=== PATIENT | female | born 1965 | race Caucasian/White ===

== ENCOUNTER 2018-07-30 09:16 | Emergency (ER) | payer BC ==
[2018-07-30] MEDS ORDERED: ONDANSETRON 4 MG/2 ML VIAL IVPUSH ONE (09:42)
[2018-07-30] MEDS ORDERED: SODIUM CHLORIDE 1,000 ML IV STA (09:42)
[2018-07-30] MEDS ORDERED: ACETAMINOPHEN 1000 MG/100 ML VIAL (NON FORMULARY) IVPB ONE (09:42)
[2018-07-30] MEDS ORDERED: FAMOTIDINE 20 MG/50 ML IVPB 20 MG/50 ML MG IVPB ONE ×2 (09:42→14:33)
--- NOTE | 2018-07-30 09:42 | PDOC ---
History of Present Illness - General Chief Complaint: Nausea/Vomiting Stated Complaint: NAUSEA/VOMITING Time Seen by Provider: 07/30/18 09:23 - History of Present Illness Initial Comments: 07/30/18 11:57 The patient is a 53 year old female with a history of asthma who presents for evaluation of nausea, vomiting, abdominal pain. The patient reports a 4 day history of epigastric abdominal pain with associated nausea and multiple episodes of non-bloody, non-bilious vomiting. The patient reports being unable to tolerate PO intake prompting her presentation to the ED for further evaluation. The patient denies similar symptoms in the past. The patient denies any exacerbating or relieving factors. She otherwise denies fevers, chills, SOB, chest pain, or changes with urination or bowel movements. Past History - Past Medical History Allergies/Adverse Reactions: Allergies Allergy/AdvReac Type Severity Reaction Status Date / Time No Known Allergies Allergy Verified 07/30/18 09:20 Home Medications: Ambulatory Orders Albuterol Sulfate Inhaler - [Ventolin HFA Inhaler -] 1 - 2 inh PO Q4H 05/30/16 Budesonide/Formeterol Fumarate [SYMBICORT 160/4.5mcg -] 1 inh PO DAILY 05/30/16 Tramadol HCl [Ultram] 50 mg PO QID #20 tablet MDD 4 05/30/16 Ondansetron [Zofran -] 4 mg PO TID #21 tablet 07/30/18 Asthma: Yes COPD: No - Suicide/Smoking/Psychosocial Hx Smoking History: Never smoked Have you smoked in the past 12 months: No Hx Alcohol Use: No Drug/Substance Use Hx: No Substance Use Type: None Review of Systems - Review of Systems Comments:: 07/30/18 12:07 Constitutional: No fevers, chills, fatigue, malaise HEENT: No Rhinorrhea, nasal congestion, visual changes Cardiovascular: No chest pain, syncope, palpitations, lightheadedness Respiratory: No Cough, SOB, Hemoptysis, Gastrointestinal: Abdominal pain, nausea, vomiting. No Constipation, Diarrhea, Melena Genitourinary: No Dysuria, Frequency, Urgency, Hesitancy, Hematuria, Flank pain Musculoskeletal: No Myalgia, arthralgia Skin: No rashes, itching, bruising, pallor Neurologic: No Headache, Dizziness, Numbness, Weakness, or Tingling Psychiatric: No Hallucinations. No SI or HI *Physical Exam - Vital Signs Last Vital Signs Temp Pulse Resp BP Pulse Ox 98.1 F 90 16 135/87 97 07/30/18 09:21 07/30/18 09:21 07/30/18 09:21 07/30/18 09:21 07/30/18 09:21 - Physical Exam Comments: 07/30/18 12:07 General Appearance: Nourished. No Apparent Distress HEENT: No Pharyngeal Erythema, Tonsillar Exudate, Tonsillar Erythema Neck: No Cervical Lymphadenopathy Respiratory/Chest: Lungs Clear, Normal Breath Sounds. No Crackles, Rales, Rhonchi, Wheezing Cardiovascular: Regular Rhythm, Regular Rate. No Murmur, Gallops, Rubs Gastrointestinal/Abdominal: Normal Bowel Sounds, Soft. Epigastric tenderness to palpation with mild guarding. No Rebound, Musculoskeletal: No CVA Tenderness Extremity: Normal Capillary Refill Integumentary: Normal Color, Dry, Warm Neurologic: Fully Oriented, Alert, Normal Mood/Affect, Normal Response, ED Treatment Course - LABORATORY CBC & Chemistry Diagram: 07/30/18 09:50 07/30/18 09:50 Medical Decision Making - Medical Decision Making 07/30/18 12:10 The patient is a 53 year old female with a history of asthma who presents for evaluation of nausea, vomiting, abdominal pain. Differential includes but is not limited to: Gastritis, Pancreatitis, Cholecysitits, ACS, Infectious, Metabolic Derangement. Given the patient's history and physical exam, we will obtain a cbc, cmp, troponin, lipase, ua, gallbladder us, ekg to evaluate further. We will treat with iv fluids, zofran, tylenol, pepcid and continue to monitor and reassess while here in the ED. 07/30/18 14:44 CBC, cmp, troponin, lipase, ua are unremarkable. Troponin is unremarkable. Gallbladder US is unremarkable as read by our radiologist. The patient tolerated PO intake. We are comfortable discharging the patient home with primary care provider follow up. We discussed the results, plan, and return precautions with the patient who voiced understanding and is agreeable with the plan. *DC/Admit/Observation/Transfer Diagnosis at time of Disposition: Abdominal pain Qualifiers: Abdominal location: unspecified location Qualified Code(s): R10.9 - Unspecified abdominal pain - Discharge Dispostion Disposition: HOME Condition at time of disposition: Stable - Prescriptions Prescriptions: Ondansetron [Zofran -] 4 mg PO TID #21 tablet - Referrals Referrals: Juan Antonio Awad [Primary Care Provider] - - Patient Instructions Printed Discharge Instructions: DI for Nausea -- Adult, DI for Vomiting -- Adult Additional Instructions: Please return to the ER if you experience concerning or worsening symptoms including worsening difficulty breathing, weakness, or chest pain, abdominal pain, fever, vomiting. Your lab results and ultrasound were normal here in the ER. Please continue to drink plenty of fluids. Please call to schedule a follow up appointment with your primary care provider within 2-3 days to discuss your ER visit and further management of your symptoms. - Post Discharge Activity
[2018-07-30] MEDS ORDERED: ACETAMINOPHEN INJECTION 100 ML IVPB ONE (09:57)
[2018-07-30] MEDS ORDERED: ONDANSETRON 4 MG/2 ML VIAL ONE (09:58)
[2018-07-30 10:07] LABS: BASO % 0.6 % (0-2.0); EOS % 4.5 % (0-4.5); HEMATOCRIT 43.7 % (32.4-45.2); HEMOGLOBIN 14.3 GM/dL (10.7-15.3); LYMPH % 26.6 % (8-40); MCH 28.9 pg (25.7-33.7); MCHC 32.8 g/dl (32.0-36.0); MONO % 8.6 % (3.8-10.2); NEUT % 59.7 % (42.8-82.8); PLATELET COUNT 93 K/MM3 (134-434); RBC 4.96 M/mm3 (3.60-5.2); RDW 13.5 % (11.6-15.6); WHITE BLOOD COUNT 8.1 K/mm3 (4.0-10.0)
--- NOTE | 2018-07-30 10:21 | PDOC ---
Attending Attestation - Resident Resident Name: Larry Valente - ED Attending Attestation I have performed the following: I have examined & evaluated the patient, The case was reviewed & discussed with the resident, I agree w/resident's findings & plan, Exceptions are as noted - HPI HPI: 07/30/18 15:27 53 years old presents emergency department for nausea vomiting abdominal pain. 4 day history of intermittent epigastric discomfort with multiple episodes of emesis Inability to tolerate by mouth fluids. Symptoms are intermittent moderate comes and goes no clear exacerbating or alleviating factors. - Physicial Exam PE: 07/30/18 15:31 Vitals: Triage Vital signs reviewed General Appearance: no acute distress, well nourished well developed, Lungs: Clear to auscultation bilateral, good air movement bilaterally, Abdomen: Soft, non distended, normal bowel sounds, mild epigastric tenderness to palpation Extremities: Full range of motion to all extremities, no cyanosis, clubbing, or edema Skin: Warm and dry, no rashes or lesions, no rash, no petechiae Psych: normal mood, normal affect - Medical Decision Making 07/30/18 15:31 Mild epigastric comfort on examination We'll check labs ultrasound observe and reassess No acute findings on laboratory analysis or ultrasound patient feels better after GI cocktail. His discharge with prescription for Zofran and close PCP and GI follow-up Findings, need for follow-up and strict return instructions discussed patient.
[2018-07-30 10:39] LABS: ALBUMIN 3.5 g/dl (3.4-5.0); ALK PHOS 140 U/L (45-117); ANION GAP 8 MMOL/L (8-16); BILIRUBIN,TOTAL 0.4 mg/dL (0.2-1); BLOOD UREA NITROGEN 13 mg/dL (7-18); CALCIUM 8.5 mg/dL (8.5-10.1); CHLORIDE 105 mmol/L (98-107); CO2 27 mmol/L (21-32); CREATININE 0.7 mg/dL (0.55-1.3); GLUCOSE,RANDOM 102 mg/dL (74-106); LIPASE 144 U/L (73-393); SGOT/AST 21 U/L (15-37); SGPT/ALT 26 U/L (13-61); SODIUM 140 mmol/L (136-145)
--- NOTE | 2018-07-30 11:54 | EKG ---
Test Reason : Blood Pressure : / mmHG Vent. Rate : 077 BPM Atrial Rate : 077 BPM P-R Int : 154 ms QRS Dur : 082 ms QT Int : 364 ms P-R-T Axes : 072 068 051 degrees QTc Int : 411 ms NORMAL SINUS RHYTHM NORMAL ECG WHEN COMPARED WITH ECG OF 10-FEB-2018 19:36, NO SIGNIFICANT CHANGE WAS FOUND Confirmed by DAYDAY MIMS MD ([id number]) on 07/30/2018 11:53:54 AM Referred By: Confirmed By:DAYDAY MIMS MD
[2018-07-30] MEDS ORDERED: METOCLOPRAMIDE HCL INJECTION 10 MG/2 ML VIAL IVPB ONE (11:58)
[2018-07-30] MEDS ORDERED: SODIUM CHLORIDE 0.9% 1000 ML INFUS.BAG IV ONE (11:58)
[2018-07-30 12:21] LABS: URINE APPEARANCE CLEAR; URINE BILIRUBIN NEGATIVE (<2.0 mg/dL); URINE COLOR LTYELLOW; URINE GLUCOSE (UA) NEGATIVE (NEGATIVE); URINE KETONE NEGATIVE (NEGATIVE); URINE LEUK ESTERASE 1+ (NEGATIVE); URINE NITRITE NEGATIVE (NEGATIVE); URINE PROTEIN NEGATIVE (NEGATIVE); URINE UROBILINOGEN NEGATIVE mg/dL (0.2-1.0)
[2018-07-30 12:47] LABS: EPI CELLS RARE /HPF (FEW); URINE MUCUS FEW
[2018-07-30] MEDS ORDERED: METOCLOPRAMIDE HCL INJECTION 10 MG/2 ML VIAL ONE (13:41)
[2018-07-30 15:08] VITALS: BP 138/74; PULSE 85; TEMP 98.2
== END 2018-07-30 15:46 | disposition home or self-care (01) ==
LOC: JER 09:16
PROC: 3E033NZ Introduction of Analgesics, Hypnotics, Sedatives into Peripheral Vein, Percutaneous Approach (ICD-10-PCS; principal; 2018-07-30)
PROC: 3E033GC Introduction of Other Therapeutic Substance into Peripheral Vein, Percutaneous Approach (ICD-10-PCS; 2018-07-30)
PROC: 3E0337Z Introduction of Electrolytic and Water Balance Substance into Peripheral Vein, Percutaneous Approach (ICD-10-PCS; 2018-07-30)
DX: R10.9 Unspecified abdominal pain (principal); J45.909 Unspecified asthma, uncomplicated
CPT/HCPCS: 36415; 76705-TC; 80053; 81003; 81015; 82550; 83690; 84484; 85025; 93005; 93010; 99282-25; J0131; J7030

== ENCOUNTER 2019-11-13 21:20 | Emergency (ER) | payer BC ==
[2019-11-13 21:42] VITALS: BP 149/71; PULSE 85; TEMP 97.7; BMI 28.2
[2019-11-13] MEDS ORDERED: LIDOCAINE 5% TOPICAL PATCH TP ONE (21:54)
[2019-11-13] MEDS ORDERED: CYCLOBENZAPRINE HCL 10 MG TABLET (FP) PO ONE (21:54)
[2019-11-13] MEDS ORDERED: KETOROLAC TROMETHAMINE 30 MG/1 ML VIAL IM ONE (21:54)
--- NOTE | 2019-11-13 22:02 | PDOC ---
History of Present Illness - General Chief Complaint: Pain Stated Complaint: BACK PAIN Time Seen by Provider: 11/13/19 21:48 History Source: Patient Exam Limitations: No Limitations Past History - Past Medical History Allergies/Adverse Reactions: Allergies Allergy/AdvReac Type Severity Reaction Status Date / Time No Known Allergies Allergy Verified 11/13/19 21:42 Home Medications: Ambulatory Orders Albuterol Sulfate Inhaler - [Ventolin HFA Inhaler -] 1 - 2 inh PO Q4H 05/30/16 Budesonide/Formeterol Fumarate [SYMBICORT 160/4.5mcg -] 1 inh PO DAILY 05/30/16 Tramadol HCl [Ultram] 50 mg PO QID #20 tablet MDD 4 05/30/16 Ondansetron [Zofran -] 4 mg PO TID #21 tablet 07/30/18 Cyclobenzaprine HCl [Flexeril 10 mg] 10 mg PO TID PRN #15 tablet 11/13/19 Lidocaine 5% Patch [Lidoderm -] 1 patch TP DAILY #7 patch 11/13/19 Asthma: Yes COPD: No - Psycho Social/Smoking Cessation Hx Smoking History: Never smoked Have you smoked in the past 12 months: No Information on smoking cessation initiated: No Hx Alcohol Use: No Drug/Substance Use Hx: No Substance Use Type: None *Physical Exam - Vital Signs Last Vital Signs Temp Pulse Resp BP Pulse Ox 97.7 F 85 17 149/71 98 11/13/19 21:40 11/13/19 21:40 11/13/19 21:40 11/13/19 21:40 11/13/19 21:40 - Physical Exam General Appearance: No: Apparent Distress Respiratory/Chest: positive: Lungs Clear, Normal Breath Sounds. negative: Respiratory Distress Cardiovascular: positive: Regular Rhythm, Regular Rate, S1, S2. negative: Murmur Gastrointestinal/Abdominal: positive: Normal Bowel Sounds, Soft. negative: Tender, Distended, Guarding, Rebound Musculoskeletal: positive: Muscle Spasm (along R lumbar paraspinal muscles). negative: CVA Tenderness, CVA Tenderness (R), CVA Tenderness (L), Vertebral Tenderness Neurologic: positive: Alert, Normal Mood/Affect, Other (normal gait) Medical Decision Making - Medical Decision Making 54 y/o F hx of asthma presents with R lower back/R buttock pain from yesterday after playing racquetball for 6 hours. Took Motrin 400 mg today with minimal relief and tried warm compresses as well. Pain does not radiate down back of leg. Denies fever, sob, cp, abd pain, n/v, urinary sxs, bowel/bladder incontinence, saddle/groin paresthesia. Likely muscle spasm/sciatica Plan: toradol, lido patch, flexeril, reassess 11/13/19 21:59 patient feeling better after meds stable for dc 11/13/19 22:48 Discharge - Discharge Information Problems reviewed: Yes Clinical Impression/Diagnosis: Muscle spasm Condition: Stable Disposition: HOME - Admission No - Additional Discharge Information Prescriptions: Cyclobenzaprine HCl [Flexeril 10 mg] 10 mg PO TID PRN #15 tablet PRN Reason: Muscle Spasms Lidocaine 5% Patch [Lidoderm -] 1 patch TP DAILY #7 patch Prescription Drug Monitoring Program (I-STOP) results: I-STOP not reviewed - Follow up/Referral - Patient Discharge Instructions Patient Printed Discharge Instructions: DI for Muscle Spasm, DI for Low Back Pain Additional Instructions: Thank you for choosing [facility]. It was a pleasure taking care of you. Take Motrin 600 mg every 6 hours as needed for pain. Take with food. Use Flexeril as needed for muscle spasms. This medication can make you drowsy. Heating pads/epsom salt baths may also help Follow-up with your doctor in 2 days Return to the Emergency Department if your symptoms worsen or persist or have other concerning symptoms. - Post Discharge Activity
[2019-11-13] MEDS ORDERED: KETOROLAC TROMETHAMINE 30 MG/1 ML VIAL ONE (22:15)
[2019-11-13] MEDS ORDERED: LIDOCAINE 5% TOPICAL PATCH ONE (22:15)
[2019-11-13] MEDS ORDERED: CYCLOBENZAPRINE HCL 10 MG TABLET (FP) ONE (22:15)
== END 2019-11-13 22:54 | disposition home or self-care (01) ==
LOC: JER 21:20
PROC: 3E0233Z Introduction of Anti-inflammatory into Muscle, Percutaneous Approach (ICD-10-PCS; principal; 2019-11-13)
DX: M62.830 Muscle spasm of back (principal); J45.909 Unspecified asthma, uncomplicated
CPT/HCPCS: 99284-25

== ENCOUNTER 2020-04-05 08:21 | Emergency (ER) | payer BC ==
--- NOTE | 2020-04-05 08:27 | PDOC ---
Rapid Medical Evaluation Medical Evaluation: Allergies Allergy/AdvReac Type Severity Reaction Status Date / Time No Known Allergies Allergy Verified 11/13/19 21:42 04/05/20 08:24 54 yo F h/o asthma, denies h/o intubation c/o sob x 30 minutes similar to prior asthma exacerbations. denies f/c/n/v/d, cp, abd pain or any other complaints. VSS speaking full sentences ambulatory A/P: asthma exacerbation -[facility] main ED
[2020-04-05 08:30] VITALS: TEMP 98.1; BMI 28.2
[2020-04-05] MEDS ORDERED: ALBUTEROL SO4 2.5/IPRATROPIUM 0.5 INH SOL 3 ML VIAL.NEB. NEB ONE (09:04)
[2020-04-05] MEDS ORDERED: MAGNESIUM SULF 50% (8.12 MEQ/2 ML-1 GM VIAL) IVPB ONE (09:04)
[2020-04-05] MEDS ORDERED: methylPREDNISolone NA SUCC 125 MG/2 ML VIAL IVPUSH ONE (09:04)
[2020-04-05] MEDS ORDERED: predniSONE 20 MG TABLET (UD) ONE (09:10)
[2020-04-05] MEDS ORDERED: ALBUTEROL SO4 HFA INHALER IH ONE (09:10)
[2020-04-05] MEDS ORDERED: ALBUTEROL SO4 HFA INHALER IH PRN (09:11)
[2020-04-05] MEDS ORDERED: predniSONE 20 MG TABLET (UD) PO ONE (09:11)
--- NOTE | 2020-04-05 09:12 | PDOC ---
History of Present Illness - General Chief Complaint: Shortness of Breath Stated Complaint: ASTHMA SOB Time Seen by Provider: 04/05/20 08:57 - History of Present Illness Initial Comments: Mayela Rosales is a 54 y/o female with PMH significant for asthma (never intubated) presenting today with shortness of breath. Reports that this morning she went from an air conditioned room to a warmer room at home and started feeling short of breath. She used her rescue inhaler with moderate relief. Denies headache. Reports mild dizziness. Denies chest pain. Denies abd pain. Denies back pain. Denies dysuria/diarrhea. No fever/chills. Past History - Medical History Allergies/Adverse Reactions: Allergies Allergy/AdvReac Type Severity Reaction Status Date / Time No Known Allergies Allergy Verified 04/05/20 08:27 Home Medications: Ambulatory Orders Albuterol Sulfate Inhaler - [Ventolin HFA Inhaler -] 1 - 2 inh PO Q4H 05/30/16 Budesonide/Formeterol Fumarate [SYMBICORT 160/4.5mcg -] 1 inh PO DAILY 05/30/16 predniSONE [Deltasone -] 40 mg PO DAILY 4 Days #8 tablet 04/05/20 Asthma: Yes COPD: No - Psycho-Social/Smoking History Smoking History: Never smoked Have you smoked in the past 12 months: No Information on smoking cessation initiated: Yes - Substance Abuse Hx (Audit-C & DAST Scrn) How often the patient has a drink containing alcohol: Never Score: In Men: 4 or > Positive; In Women: 3 or > Positive: 0 Screen Result (Pos requires Nsg. Audit-10AR): Negative In the last yr the pt used illegal drug/Rx for NonMed reason: No Score: Yes response is considered Positive: 0 Screen Result (Positive result requires Nsg. DAST-10): Negative Review of Systems - Review of Systems Comments:: GENERAL/CONSTITUTIONAL: No fever or chills. No weakness._ HEAD, EYES, EARS, NOSE AND THROAT: No change in vision. No change in hearing. No sore throat._ CARDIOVASCULAR: No chest pain. Reports shortness of breath. RESPIRATORY: Denies cough, hemoptysis_ GASTROINTESTINAL: No nausea, vomiting, diarrhea or constipation._ GENITOURINARY: No dysuria, frequency, or change in urination._ MUSCULOSKELETAL: No joint or muscle swelling or pain. No neck or back pain._ SKIN: No rash_ NEUROLOGIC: Reports lightheadedness. No headache, vertigo, or change in strength/sensation._ ENDOCRINE: No increased thirst. No abnormal weight change_ HEMATOLOGIC/LYMPHATIC: No anemia, easy bleeding, or history of blood clots._ ALLERGIC/IMMUNOLOGIC: No hives or skin allergy._ *Physical Exam - Vital Signs Last Vital Signs Temp Pulse Resp BP Pulse Ox 98.1 F 100 H 20 146/78 97 04/05/20 08:25 04/05/20 08:25 04/05/20 08:25 04/05/20 08:25 04/05/20 08:25 - Physical Exam GENERAL: Awake, alert, and oriented to person/place/time, in no acute distress_ HEAD: No signs of trauma, normocephalic, atraumatic _ EYES: PERRLA, EOMI, sclera anicteric, conjunctiva clear_ ENT: Hearing grossly normal, nares patent, oropharynx clear without exudates. No uvular deviation. Moist mucosa_ NECK: Normal ROM, supple, no lymphadenopathy, JVD, or masses_ LUNGS: No distress, speaks in full sentences, diffuse wheezes in upper and lower lung murray bilaterally. HEART: Regular rate and rhythm, normal S1 and S2, no murmurs appreciated, peripheral pulses normal and equal bilaterally._ ABDOMEN: Soft, nontender, normoactive bowel sounds. No guarding, no rebound. No masses_ EXTREMITIES: Normal inspection, Normal range of motion, no edema. No clubbing or cyanosis_ NEUROLOGICAL: Cranial nerves II through XII grossly intact. Normal speech, normal gait, no focal sensorimotor deficits _ SKIN: Warm, Dry, normal turgor, no rashes or lesions noted_ Medical Decision Making - Medical Decision Making 04/05/20 09:14 54F hx of asthma presenting today with shortness of breath. No increased work of breathing. No chest wall retractions. Speaking in full sentences and reclining in her chair. Diffuse wheezes in upper/lower lung murray bilaterally. -MDI -prednisone 04/05/20 10:50 Pt reassessed. Able to ambulate without O2 desats. Wheezing improved. Plan to d/c home with PCP f/u and prednisone 40 mg PO QD 4 days. All questions answered. Return precautions given. Pt verbalized understanding and agreement with plan. Discharge - Discharge Information Problems reviewed: Yes Clinical Impression/Diagnosis: Asthma exacerbation Qualifiers: Asthma severity: moderate Asthma persistence: unspecified Qualified Code(s): J45.901 - Unspecified asthma with (acute) exacerbation Condition: Improved Disposition: HOME - Admission No - Additional Discharge Information Prescriptions: predniSONE [Deltasone -] 40 mg PO DAILY 4 Days #8 tablet - Follow up/Referral Referrals: Juan Antonio Awad [Primary Care Provider] - - Patient Discharge Instructions Patient Printed Discharge Instructions: DI for Asthma -- Adult Additional Instructions: Please continue taking your medications as prescribed. Please take Prednisone 40 mg once a day for four days. Please make a follow up appointment with your primary care doctor. If you experience any new, worsening, or concerning symptoms, including worsening shortness of breath, chest pain, or any other concerns, please return to the emergency room. Print Language: BULGARIAN - Post Discharge Activity
[2020-04-05] MEDS: ALBUTEROL SO4 0.083% IH SOL 2.5 MG/3 ML VIAL.NEB. NEB SCH ×3 (09:17→09:49)
--- NOTE | 2020-04-05 10:02 | PDOC ---
Documentation entered by Mame Chen SCRIBE, acting as scribe for Annalisa Mckeon MD. Annalisa Mckeon MD: This documentation has been prepared by the scribe, Mame Judd SCRIBE, under my direction and personally reviewed by me in its entirety. I confirm that the documentation accurately reflects all work, treatment, procedures, and medical decision making performed by me. Attending Attestation - Resident Resident Name: JeremiMark - ED Attending Attestation I have performed the following: I have examined & evaluated the patient, The case was reviewed & discussed with the resident, I agree w/resident's findings & plan, Exceptions are as noted - HPI HPI: 04/05/20 09:56 54 yo F h/o asthma, no previous intubations p/w SOB since this morning. States feels similar to previous asthma exacerbations. Thinks her asthma was triggered by the heat. Took her albuterol at home with insufficient relief. Reports mild nasal congestion which patient reports is typical for her since she has allergie s. Denies cough, fevers, sick contacts, LE swelling, recent travel, h/o clots, or chest pain. Reports her symptoms have improved since arrival in the ED. - Physicial Exam PE: 04/05/20 10:00 General: NAD Chest: diffuse expiratory wheezes, good air entry, speakin gin full sentences, no accessory muscle use CVS: +s1s2, RRR Extremities: warm and well perfused, No LE edema - Medical Decision Making 04/05/20 10:00 54 yo F here with asthma exacerbation, no signs of respiratory distress. Doubt PE or ACS as hx and exam more consistent with asthma exacerbation. No infectious complaints to suggest PNA or COVID. Plan: -albuterol/ipatropium -steroids -reassess, if patient with improvement in symptoms will d/c with rx for prednisone x4 more days and PMD f/u, return precautions given This clinical encounter is taking place during a federal and state health care emergency attributable to the novel [place] Virus pandemic. The Conservation Coordinator of the Department of Health and Human Services has declared, pursuant to the Public Health Service Act 319F-3 (42 U.S.C. 247d-6d), that a covered persons activities related to medical countermeasures against COVID-19 will be immune from liability under Federal and State law. 04/05/20 10:27 Pt with improvement in symptoms. Wheezing improved. Patient ambulatory in ED without any resp complaints. Will d/c with return precautions, recommend PMD f/u, rx for prednisone Discharge - Discharge Information Problems reviewed: Yes Clinical Impression/Diagnosis: Asthma exacerbation Qualifiers: Asthma severity: moderate Asthma persistence: unspecified Qualified Code(s): J45.901 - Unspecified asthma with (acute) exacerbation Condition: Improved Disposition: HOME - Admission No - Additional Discharge Information Prescriptions: predniSONE [Deltasone -] 40 mg PO DAILY 4 Days #8 tablet - Follow up/Referral Referrals: Juan Antonio Awad [Primary Care Provider] - - Patient Discharge Instructions Patient Printed Discharge Instructions: DI for Asthma -- Adult Additional Instructions: Please continue taking your medications as prescribed. Please take Prednisone 40 mg once a day for four days. Please make a follow up appointment with your primary care doctor. If you experience any new, worsening, or concerning symptoms, including worsening shortness of breath, chest pain, or any other concerns, please return to the emergency room. Print Language: LATVIAN - Post Discharge Activity
[2020-04-05 10:36] VITALS: BP 148/64; PULSE 80
== END 2020-04-05 10:49 | disposition home or self-care (01) ==
LOC: JER 08:21
PROC: 3E0F7GC Introduction of Other Therapeutic Substance into Respiratory Tract, Via Natural or Artificial Opening (ICD-10-PCS; principal; 2020-04-05)
PROC: 3E033GC Introduction of Other Therapeutic Substance into Peripheral Vein, Percutaneous Approach (ICD-10-PCS; 2020-04-05)
PROC: 3E033GC Introduction of Other Therapeutic Substance into Peripheral Vein, Percutaneous Approach (ICD-10-PCS; 2020-04-05)
DX: J45.901 Unspecified asthma with (acute) exacerbation (principal)
CPT/HCPCS: 99284-25

== ENCOUNTER 2021-06-12 03:23 | Emergency (ER) | payer BC, OTHER ==
[2021-06-12] MEDS ORDERED: ALBUTEROL SO4 2.5/IPRATROPIUM 0.5 INH SOL 3 ML VIAL.NEB. NEB ONE (03:27)
[2021-06-12 03:32] VITALS: BMI 28.2
[2021-06-12] MEDS ORDERED: MAGNESIUM SULFATE IN WATER 2 GM/50 ML IVPB IVPB ONE (03:45)
[2021-06-12] MEDS ORDERED: methylPREDNISolone NA SUCC 125 MG/2 ML VIAL ONE (03:45)
[2021-06-12] MEDS ORDERED: MAGNESIUM SULF 50% (8.12 MEQ/2 ML-1 GM VIAL) IVPB ONE (03:47)
[2021-06-12] MEDS ORDERED: methylPREDNISolone NA SUCC 125 MG/2 ML VIAL IVPUSH ONE (03:47)
[2021-06-12] MEDS ORDERED: RACEPINEPHRINE IH SOL 2.25% 11.25 MG/0.5 ML VIAL IH ONE ×2 (03:47→03:48)
[2021-06-12] MEDS ORDERED: RACEPINEPHRINE IH SOL 2.25% 11.25 MG/0.5 ML VIAL NEB ONE (03:49)
[2021-06-12 03:55] LABS: BASO % 1.2 % (0-2.0); EOS % 6.3 % (0-4.5); HEMOGLOBIN 14.4 GM/dL (10.7-15.3); LYMPH % 44.9 % (8-40); MCH 30.2 pg (25.7-33.7); MCHC 33.5 g/dl (32.0-36.0); MEAN CELL VOLUME 90.2 fl (80-96); MEAN PLT VOLUME 12.2 fl (7.5-11.1); MONO % 7.8 % (3.8-10.2); NEUT % 39.8 % (42.8-82.8); PLATELET COUNT 111 10^3/uL (134-434); RBC 4.76 M/mm3 (3.60-5.2); RDW 14.3 % (11.6-15.6); WHITE BLOOD COUNT 11.7 K/mm3 (4.0-10.0)
[2021-06-12 04:05] LABS: VENOUS BASE EXCESS -4.3 mmol/L (-2-2); VENOUS O2 SATURATION 89.3 % (70-80); VENOUS PCO2 38.9 mmHg (38-52); VENOUS PH 7.348 (7.310-7.410)
[2021-06-12 04:16] LABS: INR 0.92 (0.83-1.09); PROTHROMBIN TIME (PATIENT) 11.1 SEC (9.7-13.0)
[2021-06-12 04:18] LABS: ACTIVATED PTT 27.1 SECONDS (25.2-36.5)
[2021-06-12 04:19] LABS: ALBUMIN 3.3 g/dl (3.4-5.0); CALCIUM 8.6 mg/dL (8.5-10.1)
[2021-06-12 04:20] LABS: BLOOD UREA NITROGEN 12.3 mg/dL (7-18)
[2021-06-12 04:23] LABS: CREATININE 0.9 mg/dL (0.55-1.3)
[2021-06-12 04:24] LABS: BILIRUBIN,TOTAL 0.2 mg/dL (0.2-1); TOT PROT 8.3 g/dl (6.4-8.2)
[2021-06-12 04:48] LABS: LACTIC ACID 2.7 mmol/L (0.4-2.0)
[2021-06-12] MEDS ORDERED: LACTATED RINGERS SOLUTION 1000 ML INFUS.BAG IV ONE (05:30)
[2021-06-12 06:34] VITALS: BP 112/69; PULSE 95; TEMP 98.3
== END 2021-06-12 06:35 | disposition home or self-care (01) ==
LOC: JER 03:23
PROC: 3E033GC Introduction of Other Therapeutic Substance into Peripheral Vein, Percutaneous Approach (ICD-10-PCS; principal; 2021-06-12)
PROC: 3E033GC Introduction of Other Therapeutic Substance into Peripheral Vein, Percutaneous Approach (ICD-10-PCS; 2021-06-12)
DX: J45.901 Unspecified asthma with (acute) exacerbation (principal); R05 Cough; J38.5 Laryngeal spasm
CPT/HCPCS: 36415; 70490-TC; 71045-TC-FY; 80053; 82803; 83605; 85025; 85610; 85730; 93005; 93010; 99285-25; C9803; U0003; U0005